=== PATIENT | male | born 1975 | race Caucasian/White ===

== ENCOUNTER 2019-01-09 20:19 | Emergency (ER) | payer OTHER ==
[2019-01-09] MEDS ORDERED: Ketorolac INJ* 15 MG/ML 1 ML VIAL IV ONE (21:33)
[2019-01-09] MEDS ORDERED: NS 0.9% 1000 ML** 1,000 ML IV ONE ×2 (21:33→23:20)
[2019-01-09] MEDS ORDERED: Pantoprazole IV* 40 MG IV ONE (21:33)
[2019-01-09] MEDS ORDERED: Ondansetron INJ* 2 MG/ML VIAL IV ONE (21:33)
[2019-01-09 22:44] LABS: ABS Basophils 0.1 10^3/ul (0-0.2); ABS Lymphocytes 0.4 10^3/ul (1.0-4.8); ABS Monocytes 0.3 10^3/ul (0-0.8); ABS Neutrophils 11.2 10^3/ul (1.5-7.7); Hematocrit 40 % (42-52); Lymphocyte % 3.1 %; Mean Corpuscular HGB Conc 35 g/dL (31-36); Mean Corpuscular Hemoglobin 32 pg (27-31); Mean Corpuscular Volume 91 fL (80-94); Platelet Count 187 10^3/uL (150-450); Red Blood Count 4.44 10^6 /uL (4.18-5.48); Red Cell Distribution Width 13 % (10-15)
[2019-01-09 22:50] LABS: INR 1.17 (0.82-1.09)
[2019-01-09 23:05] LABS: Albumin 4.5 g/dL (3.2-5.2); BUN/Creatinine Ratio 11.7 (8-20); C Reactive Protein 1.08 mg/L (<8.01); Calcium 9.5 mg/dL (8.6-10.3); EGFR African American 63.7 (>60); EGFR Non-African American 52.6 (>60); Globulin 2.3 g/dL (2-4); Potassium 4.1 mmol/L (3.5-5.0); Total Bilirubin 0.7 mg/dL (0.2-1.0); Total Protein 6.8 g/dL (6.4-8.9)
--- NOTE | 2019-01-09 23:13 | ED ---
GI/ HPI - HPI Summary HPI Summary: The patient is a 43 y/o M presenting to [facility] with a chief complaint of severe LLQ and left flank pain radiating into the back onset at 1400 today. He reports concern for a kidney stone as he has history of them in the past with need for surgical interventions. He is experiencing nausea, vomiting, decreased oral intake, and urinary retention in addition to the abdominal pain. He has self- administered two Ibuprofen for pain to no relief as he excreted the medication through emesis. The sharp pain has been persistently rated 8-9/10 since onset. PMHx: kidney stones with removal. Nonsmoker, occasional EtOH, no substance use. Medications reviewed. Allergies noted. - History of Current Complaint Chief Complaint: EDFlankPain Time Seen by Provider: 01/09/19 22:27 Stated Complaint: ABDOMINAL PAIN PER PT Hx Obtained From: Patient Onset/Duration: Started Hours Ago - at 1400 today, Still Present Timing: Lasting Hours Severity: Severe Current Severity: Severe Pain Intensity: 9 Location of Pain: LLQ, Flank - left Pain Characteristics: Sharp Pain Radiates to: Back - left low, Flank - left Associated Signs and Symptoms: Positive: Nausea, Vomiting, Change in Appetite - decreased oral intake, Flank Pain - left, Abdominal Pain - LLQ, Other: - urinary retention Aggravating Factor(s): Nothing Alleviating Factor(s): Nothing - Allergy/Home Medications Allergies/Adverse Reactions: Allergies Allergy/AdvReac Type Severity Reaction Status Date / Time No Known Allergies Allergy Verified 01/09/19 21:24 PMH/Surg Hx/FS Hx/Imm Hx Endocrine/Hematology History: Denies: Hx Diabetes, Hx Thyroid Disease Cardiovascular History: Denies: Hx Hypertension Respiratory History: Denies: Hx Asthma, Hx Chronic Obstructive Pulmonary Disease (COPD) GI History: Denies: Hx Ulcer History: Reports: Hx Kidney Stones Psychiatric History: Reports: Hx Anxiety - Surgical History Surgical History: Yes Surgery Procedure, Year, and Place: renal calculi removal Infectious Disease History: No Infectious Disease History: Denies: Hx Hepatitis, Hx Human Immunodeficiency Virus (HIV), History Other Infectious Disease, Traveled Outside the [place] in Last 30 Days - Family History Known Family History: Negative: Cardiac Disease, Hypertension - Social History Alcohol Use: Occasionally Hx Substance Use: No Substance Use Type: Reports: None Substance Use Comment - Amount & Last Used: about a month ago Hx Tobacco Use: No Smoking Status (MU): Never Smoked Tobacco Review of Systems - ROS Summary Review of Systems Summary: Home Medications Medication Instructions Recorded Confirmed Type Acetaminophen TAB* [Tylenol TAB*] 650 mg PO 07/27/12 09/12/13 History Ibuprofen TAB* [Advil TAB*] 200 mg PO Q6H PRN 04/03/15 04/03/15 History Positive: Abdominal Pain - LLQ, Vomiting, Nausea, Other - decreased oral intake Positive: flank pain - left, other - urinary retention Positive: Other - left back All Other Systems Reviewed And Are Negative: Yes Physical Exam - Summary Physical Exam Summary: General: Well-developed, Well-nourished male. Appears to be in moderate distress. HEENT: Normocephalic, Atraumatic. Eyes: Conjuctiva normal, PERRL. Ears: TMs within normal limits. Nares: (-) discharge, (-) erythema. Oropharynx: Clear, mucous membranes moist, (-) exudates. Neck: Soft, FROM, (-) lymphadenopathy, (-) thyromegaly, (-) JVD. Cardiovascular: Normal sinus rhythm, (-) murmur. Lungs: Clear to auscultation bilaterally (-) wheezes, (-) rales, (-) rhonchi. Abdomen: Soft, mild LLQ and left flank tenderness at palpation, non-distended, ( -) organomegaly, normal bowel sounds. Back: (-) CVA tenderness Extremities: No edema. Skin: Warm, dry, (-) rash. Neuro: Alert and oriented x3, no focal deficits. Psychiatric: Mood normal, affect normal. Triage Information Reviewed: Yes Vital Signs On Initial Exam: Initial Vitals Temp Pulse Resp BP Pulse Ox 99.6 F 62 15 126/94 100 01/09/19 21:23 01/09/19 21:23 01/09/19 21:23 01/09/19 21:23 01/09/19 21:23 Vital Signs Reviewed: Yes Procedures - Sedation Patient Received Moderate/Deep Sedation with Procedure: No Diagnostics - Vital Signs Vital Signs Temp Pulse Resp BP Pulse Ox 01/09/19 21:23 99.6 F 62 15 126/94 100 - Laboratory Lab Results: Lab Results 01/09/19 01/09/19 01/09/19 Range/Units 22:38 22:38 22:38 WBC 12.0 H (3.5-10.8) 10^3/uL RBC 4.44 (4.18-5.48) 10^6 /uL Hgb 14.0 (14.0-18.0) g/dL Hct 40 L (42-52) % MCV 91 (80-94) fL MCH 32 H (27-31) pg MCHC 35 (31-36) g/dL RDW 13 (10-15) % Plt Count 187 (150-450) 10^3/uL MPV 8.0 (7.4-10.4) fL Neut % (Auto) 93.8 % Lymph % (Auto) 3.1 % [place] % (Auto) 2.7 % Eos % (Auto) 0.0 % Baso % (Auto) 0.4 % Absolute Neuts (auto) 11.2 H (1.5-7.7) 10^3/ul Absolute Lymphs (auto) 0.4 L (1.0-4.8) 10^3/ul Absolute Monos (auto) 0.3 (0-0.8) 10^3/ul Absolute Eos (auto) 0.0 (0-0.6) 10^3/ul Absolute Basos (auto) 0.1 (0-0.2) 10^3/ul Absolute Nucleated RBC 0.0 10^3/ul Nucleated RBC % 0.0 INR (Anticoag Therapy) (0.82-1.09) Sodium 140 (135-145) mmol/L Potassium 4.1 (3.5-5.0) mmol/L Chloride 106 (101-111) mmol/L Carbon Dioxide 27 (22-32) mmol/L Anion Gap 7 (2-11) mmol/L BUN 17 (6-24) mg/dL Creatinine 1.45 H (0.67-1.17) mg/dL Est GFR ( Amer) 63.7 (>60) Est GFR (Non-Af Amer) 52.6 (>60) BUN/Creatinine Ratio 11.7 (8-20) Glucose 139 H (70-100) mg/dL Lactic Acid 1.3 (0.5-2.0) mmol/L Calcium 9.5 (8.6-10.3) mg/dL Total Bilirubin 0.70 (0.2-1.0) mg/dL AST 22 (13-39) U/L ALT 19 (7-52) U/L Alkaline Phosphatase 85 (34-104) U/L C-Reactive Protein 1.08 (<8.01) mg/L Total Protein 6.8 (6.4-8.9) g/dL Albumin 4.5 (3.2-5.2) g/dL Globulin 2.3 (2-4) g/dL Albumin/Globulin Ratio 2.0 (1-3) Lipase 17 (11.0-82.0) U/L 01/09/19 Range/Units 22:38 WBC (3.5-10.8) 10^3/uL RBC (4.18-5.48) 10^6 /uL Hgb (14.0-18.0) g/dL Hct (42-52) % MCV (80-94) fL MCH (27-31) pg MCHC (31-36) g/dL RDW (10-15) % Plt Count (150-450) 10^3/uL MPV (7.4-10.4) fL Neut % (Auto) % Lymph % (Auto) % [place] % (Auto) % Eos % (Auto) % Baso % (Auto) % Absolute Neuts (auto) (1.5-7.7) 10^3/ul Absolute Lymphs (auto) (1.0-4.8) 10^3/ul Absolute Monos (auto) (0-0.8) 10^3/ul Absolute Eos (auto) (0-0.6) 10^3/ul Absolute Basos (auto) (0-0.2) 10^3/ul Absolute Nucleated RBC 10^3/ul Nucleated RBC % INR (Anticoag Therapy) 1.17 H (0.82-1.09) Sodium (135-145) mmol/L Potassium (3.5-5.0) mmol/L Chloride (101-111) mmol/L Carbon Dioxide (22-32) mmol/L Anion Gap (2-11) mmol/L BUN (6-24) mg/dL Creatinine (0.67-1.17) mg/dL Est GFR ( Amer) (>60) Est GFR (Non-Af Amer) (>60) BUN/Creatinine Ratio (8-20) Glucose (70-100) mg/dL Lactic Acid (0.5-2.0) mmol/L Calcium (8.6-10.3) mg/dL Total Bilirubin (0.2-1.0) mg/dL AST (13-39) U/L ALT (7-52) U/L Alkaline Phosphatase (34-104) U/L C-Reactive Protein (<8.01) mg/L Total Protein (6.4-8.9) g/dL Albumin (3.2-5.2) g/dL Globulin (2-4) g/dL Albumin/Globulin Ratio (1-3) Lipase (11.0-82.0) U/L Result Diagrams: 01/09/19 22:38 01/09/19 22:38 Lab Statement: Any lab studies that have been ordered have been reviewed, and results considered in the medical decision making process. - CT Abd/Pel CT CT Interpretation Completed By: Radiologist Summary of CT Findings: Impression: There is a 6 mm calculus in the proximal left ureter with mild to moderate left obstructive uropathy. ED physician has reviewed this imaging report. Re-Evaluation - Re-Evaluation First Eval Re-Evaluation Time: 01:55 Change: Improved Comment: I have discussed results with the patient and pain has improved. Discussed symptoms that warrant immediate return to ED. GIGU Course/Dx - Course Course Of Treatment: 43-year-old male with flank pain and abdominal pain. Symptoms improved significantly with Toradol, IV fluids, Zofran. CAT scan demonstrated 6 mm kidney stone. Patient given Flomax as well as Percocet as needed for breakthrough pain. Advised plenty of fluids. Follow up with urology. Follow-up sooner for any worsening symptoms. - Diagnoses Provider Diagnoses: Renal calculus Discharge ED - Sign-Out/Discharge Documenting (check all that apply): Patient Departure - Patient will be discharged home. - Discharge Plan Condition: Stable Disposition: HOME Prescriptions: oxyCODONE/Acetamin 5/325 MG* [Percocet 5/325 TAB*] 1 tab PO Q4H PRN #18 tab MDD 6 PRN Reason: severe pain Tamsulosin CAP* [Flomax CAP*] 0.4 mg PO DAILY #7 cap Patient Education Materials: Kidney Stones (ED) Referrals: [facility] [Outside] - 3 Days [facility] [Outside] - 3 Days El Greenberg MD [Medical Doctor] - 1 Day Additional Instructions: Please follow up with urology in one to two days and your primary care physician within three days. Please return to ED for any new or worsening symptoms. - Billing Disposition and Condition Condition: STABLE Disposition: Home - Attestation Statements Document Initiated by Scribe: Yes Documenting Scribe: Shanti Bell Provider For Whom Scribe is Documenting (Include Credential): Dr. Sara Painting MD Scribe Attestation: Shanti Rhodes, scribed for Dr. Sara Painting MD on 01/10/19 at 0528. Scribe Documentation Reviewed: Yes Provider Attestation: The documentation as recorded by the Shanti dougherty accurately reflects the service I personally performed and the decisions made by me, Dr. Sara Painting MD Status of Scribe Document: Viewed
[2019-01-10 01:16] LABS: Urine Appearance Cloudy; Urine Bacteria 1+ (Absent); Urine Bilirubin Negative (Negative); Urine Blood 3+ (Negative); Urine Color Yellow; Urine Glucose Negative (Negative); Urine Ketones 1+ (Negative); Urine Nitrite Negative (Negative); Urine Protein 1+(30 mg/dL) (Negative); Urine Red Blood Cell 3+(>10/hpf) (Absent); Urine Specific Gravity 1.027 (1.010-1.030); Urine Squamous Epithelial Cell Present (Absent); Urine Urobilinogen Negative (Negative); Urine White Blood Cell Trace(0-5/hpf) (Absent)
[2019-01-10] MEDS ORDERED: Tamsulosin CAP* 0.4 MG PO ONE (02:05)
[2019-01-10 02:48] VITALS: BP 139/91
== END 2019-01-10 02:25 | disposition home or self-care (01) ==
LOC: ED 20:19
DX: N20.0 Calculus of kidney (principal); R10.32 Left lower quadrant pain; Z87.442 Personal history of urinary calculi; R33.9 Retention of urine, unspecified; Z79.01 Long term (current) use of anticoagulants; R11.2 Nausea with vomiting, unspecified; F41.9 Anxiety disorder, unspecified
CPT/HCPCS: 36415; 74176; 80053; 81003; 81015; 83605; 83690; 85025; 85610; 86140; 87040; 87086; 96361; 96374; 96375; 99282; J1885; J2405

== ENCOUNTER 2019-01-13 08:37 | Emergency (ER) | payer OTHER ==
[2019-01-13 08:55] VITALS: BP 133/86
[2019-01-13] MEDS ORDERED: Tetan/Diph/Pertus SYR(Tdap)* 0.5 ML SYR(BOOSTRIX) use SYR contains LATEX IM ONE (09:25)
--- NOTE | 2019-01-13 09:33 | UC ---
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 LAST TETANUS ABOUT 8 YEARS AGO. - History Of Current Complaint Chief Complaint: UCLaceration Stated Complaint: FINGER LACERATION Time Seen by Provider: 01/13/19 08:49 Hx Obtained From: Patient Laceration Location: Finger - RIGHT INDEX Mechanism Of Injury: Sharp Trauma Onset/Duration: Sudden Onset, Lasting Minutes, Still Present Severity: Moderate Pain Intensity: 3 Pain Scale Used: 0-10 Numeric Aggravating Factors: Nothing Related History: Dominant Hand Left - Allergies/Home Medications Allergies/Adverse Reactions: Allergies Allergy/AdvReac Type Severity Reaction Status Date / Time No Known Allergies Allergy Verified 01/13/19 08:54 PMH/Surg Hx/FS Hx/Imm Hx GI/ History: Kidney Stones - Surgical History Surgical History: Yes Surgery Procedure, Year, and Place: renal calculi removal - Family History Known Family History: Positive: None Negative: Cardiac Disease, Hypertension - Social History Alcohol Use: Occasionally Substance Use Type: Marijuana Substance Use Comment - Amount & Last Used: rare Smoking Status (MU): Never Smoked Tobacco Review of Systems All Other Systems Reviewed And Are Negative: Yes Constitutional: Positive: Negative Skin: Positive: Other - AVULSION INJURY RIGHT INDEX FINGER Respiratory: Positive: Negative Cardiovascular: Positive: Negative Gastrointestinal: Positive: Negative Musculoskeletal: Positive: Negative Physical Exam Triage Information Reviewed: Yes Appearance: Well-Appearing, No Pain Distress, Well-Nourished Vital Signs: Initial Vital Signs Temp 99.6 F 01/13/19 08:48 Pulse 90 01/13/19 08:48 Resp 16 01/13/19 08:48 BP 133/86 01/13/19 08:48 Pulse Ox 98 01/13/19 08:48 Vital Signs Reviewed: Yes Eyes: Positive: Conjunctiva Clear ENT: Positive: Hearing grossly normal Neck: Positive: Supple Respiratory: Positive: No respiratory distress, No accessory muscle use Cardiovascular: Positive: Pulses Normal Abdomen Description: Positive: Soft Musculoskeletal: Positive: ROM Intact, No Edema Neurological: Positive: Alert Psychological: Positive: Age Appropriate Behavior Skin: Positive: Other - 13MM X 8MM AVULSION TIP OF RIGHT INDEX FINGER Laceration Course/Dx - Course/Dx Course Of Treatment: PATIENT PRESENTS WITH A SOFT TISSUE AVULSION INJURY TO HIS RIGHT DISTAL INDEX FINGER. HE HAS BROUGHT THE AVULSED PIECE OF TISSUE. ON INSPECTION THERE IS NO BONY INVOLVEMENT. PATIENT DECLINES X-RAYS TODAY WHICH I THINK IS REASONABLE. TDAP BOOSTED. SURGICEL APPLIED BY . TUBE GAUZE APPLIED BY RN. CEPHALEXIN FOR INFECTION PROPHYLAXIS. FOLLOW-UP IF NEEDED. - Diagnosis Provider Diagnosis: Soft tissue avulsion Discharge ED - Sign-Out/Discharge Documenting (check all that apply): Patient Departure All imaging exams completed and their final reports reviewed: No Studies - Discharge Plan Condition: Stable Disposition: HOME Prescriptions: Cephalexin CAP* [Keflex 500 CAP*] 500 mg PO BID #14 cap Patient Education Materials: Skin Avulsion (ED) Referrals: [facility] [Outside] - If Needed Additional Instructions: KEEP DRY ABLE. THE SURGICELL WILL LIKELY FALL OFF WITHIN A WEEK. TAKE THE ANTIBIOTICS PRESCRIBED TO HELP PREVENT INFECTION. SEEK FOLLOW-UP IF YOU DEVELOP SPREADING REDNESS OF THE SKIN, PURULENT DRAINAGE, FEVER, INCREASED PAIN OR ANY OTHER CONCERNING SYMPTOMS. CALL THE NUMBER BELOW FOR ASSISTANCE IN ESTABLISHING WITH A PCP An additional resource available to assist in finding the appropriate physician for your health care needs is the [facility] ([facility]). You may contact them by calling [phone] - Billing Disposition and Condition Condition: STABLE Disposition: Home
== END 2019-01-13 10:01 | disposition home or self-care (01) ==
LOC: UCEAST 08:37
DX: S61.200A Unspecified open wound of right index finger without damage to nail, initial encounter (principal); W26.8XXA Contact with other sharp object(s), not elsewhere classified, initial encounter; Y92.9 Unspecified place or not applicable; Y99.0 Civilian activity done for income or pay; Z23 Encounter for immunization
CPT/HCPCS: 90715; 99202; G0463